=== PATIENT | female | born 1955 | race Native Hawaiian/Other Pacific Islander ===

== ENCOUNTER 2018-02-09 06:23 | Day surgery (SDC) | payer OTHER ==
[2018-02-07 14:21] VITALS: BMI 23.0
[2018-02-09 06:59] VITALS: O2SAT 100
[2018-02-09] MEDS ORDERED: Propofol 10 mg/ml Inj (20 ML) ONE ×2 (08:24→08:25)
[2018-02-09] MEDS ORDERED: Lidocaine Hydrochloride 5 ML INJ ONE (08:25)
[2018-02-09] MEDS ORDERED: ePHEDrine 50 mg/ml Inj ONE (08:41)
[2018-02-09 09:19] VITALS: TEMP 96.9
[2018-02-09 13:20] VITALS: BP 118/67; PULSE 76; RESP 18
== END 2018-02-09 13:10 | disposition home or self-care (01) ==
LOC: C.ENDO 06:23
PROVIDERS: ATTEND Internal Medicine Gastroenterology
DX: Z12.11 Encounter for screening for malignant neoplasm of colon (principal); B82.0 Intestinal helminthiasis, unspecified; K64.1 Second degree hemorrhoids; K29.50 Unspecified chronic gastritis without bleeding; K21.9 Gastro-esophageal reflux disease without esophagitis; K57.30 Diverticulosis of large intestine without perforation or abscess without bleeding; I10 Essential (primary) hypertension; E78.5 Hyperlipidemia, unspecified; K59.00 Constipation, unspecified; R12 Heartburn
CPT/HCPCS: 43239; 45380; 88305; 88312; 88313; 88342; J2704; J3010

== ENCOUNTER 2018-05-17 06:23 | Outpatient (CLI) | payer OTHER | END 2018-05-17 06:24 | disposition home or self-care (01) | LOC: C.LAB 06:23 ==

== ENCOUNTER 2018-06-29 10:24 | Outpatient (CLI) | payer OTHER | END 2018-06-29 10:25 | disposition home or self-care (01) | LOC: C.RADIC 10:24 | DX: E78.00 Pure hypercholesterolemia, unspecified (principal); E78.1 Pure hyperglyceridemia; I10 Essential (primary) hypertension; Z12.31 Encounter for screening mammogram for malignant neoplasm of breast; Z68.23 Body mass index [BMI] 23.0-23.9, adult ==

== ENCOUNTER 2018-09-06 08:36 | Outpatient (CLI) | payer OTHER | END 2018-09-06 08:37 | disposition home or self-care (01) | LOC: C.PAT 08:36 | DX: E04.9 Nontoxic goiter, unspecified (principal) ==

== ENCOUNTER 2018-09-09 06:17 | Outpatient (CLI) | payer OTHER | END 2018-09-09 06:18 | disposition home or self-care (01) | LOC: C.CARD 06:17 | DX: R06.02 Shortness of breath (principal); I10 Essential (primary) hypertension; E78.2 Mixed hyperlipidemia ==

== ENCOUNTER → 2018-09-16 | Day surgery (SDC) | payer OTHER | LOC: C.CATHLAB 08:23 | DX: R94.39 Abnormal result of other cardiovascular function study (principal); E78.2 Mixed hyperlipidemia; I10 Essential (primary) hypertension ==